=== PATIENT | female | born 1990 | race Caucasian/White ===

== ENCOUNTER 2020-11-01 13:47 | Outpatient (CLI) | payer OTHER, SELFPAY ==
--- NOTE | ~2020-11-01 | XR_ITS ---
XR thoracic spine 3V DATE: 11/01/2020 14:14 INDICATION: Right back pain TECHNIQUE: AP, lateral, swimmer views COMPARISON: 01/24/2011 lumbar spine FINDINGS: There is chronic mild anterior wedging of T11, also present on 01/24/2011. There is minimal degenerative spurring of the thoracic spine. No fracture or dislocation or bone dest ruction. The thoracic pedicles are intact. No paraspinal soft tissue thickening. IMPRESSION: Chronic mild anterior wedging of T11 and minimal degenerative spurring of the thoracic sp ine Reviewed, dictated and finalized at location B. IMPRESSION: Chronic mild anterior wedging of T11 and minimal degenerative spurr ing of the thoracic spine
== END 2020-11-01 13:48 | disposition home or self-care (01) ==
LOC: CHSIMG 13:52
PROVIDERS: PCP Family Medicine; Visit Provider Nurse Practitioner Psychiatric/Mental Health
DX: M54.6 Pain in thoracic spine (principal)
CPT/HCPCS: 72072

== ENCOUNTER 2020-11-30 08:21 | Outpatient (CLI) | payer OTHER, SELFPAY ==
[2020-11-30 08:51] LABS: Estimated Glomerular Filt Rate > 60
== END 2020-11-30 08:22 | disposition home or self-care (01) ==
LOC: CHSIMG 08:25
PROVIDERS: PCP Family Medicine; Visit Provider Nurse Practitioner Psychiatric/Mental Health
DX: R79.89 Other specified abnormal findings of blood chemistry (principal)
CPT/HCPCS: 99199

== ENCOUNTER 2020-12-31 06:00 | Emergency (ER) | payer OTHER, SELFPAY ==
[2020-12-31 06:05] VITALS: PULSE 80; RESP 18; TEMP 36.3; O2SAT 95
[2020-12-31] MEDS: methylPREDNISolone SOD SUCC 125 MG VIAL (06:37)
--- NOTE | 2020-12-31 06:47 | ED.SKABFB ---
HPI - Skin/Abscess/Foreign Bdy General Chief complaint: Skin/Abscess/Foreign Body Stated complaint: hives Time Seen by Provider: 12/31/20 06:07 Source: patient Mode of arrival: ambulatory Limitations: no limitations History of Present Illness complaint: rash (localized right lower abdomen to right upper buttock resolved urticariae) Onset (ago): day(s) (1) Location: buttocks Severity: mild Quality: pruritic Pain Consistency: other (pain-free.) Relieving factors: medication Exacerbating factors: none Associated symptoms: denies other symptoms Treatments prior to arrival: Benadryl Related Data Home Medications Medication Instructions Recorded Confirmed buspirone See Rx Instructions .ROUTE .COMPLEX 12/31/20 12/31/20 cyclobenzaprine See Rx Instructions .ROUTE .COMPLEX 12/31/20 12/31/20 metformin 500 mg PO DAILY 12/31/20 12/31/20 Allergies Allergy/AdvReac Type Severity Reaction Status Date / Time No Known Allergies Allergy Verified 12/31/20 06:03 Review of Systems Review of Systems: All systems reviewed & are unremarkable except as noted in HPI and below Allergic/Immunologic: Allergic/Immunologic: Reports as per HPI [facility] Past Medical History Medical History (Updated 01/01/21 @ 10:53 by Pauly Real MD) Medical history non-contributory Social History Social History Smoking status: Never smoker Exam Const: General: no acute distress Orientation/consciousness: patient oriented x3 HENMT: Head: normal to inspection Ears: external ears normal and TM's normal bilaterally General nose exam: Normal external nose present and Normal nares present Mouth: Yes lip normal and Yes moist mucous membranes Teeth and gingiva: dentition normal Eyes: Pupils: Equal, round and reactive pupils present EOM: EOMs intact bilaterally Neck: Neck: normal visual inspection Chest: Chest palpation & inspection: normal inspection of the chest Resp: Effort & Inspection: normal respiratory effort Auscultation: clear to auscultation bilaterally Cardio: Rate: regular rate Rhythm: regular rhythm GI: GI Palp: Yes Soft to palpation Percussion: Yes normal to percussion Auscultation: normal bowel sounds : General: Yes no CVA tenderness Back/Spine/Pelvis: Back: no CVA tenderness Skin: General skin exam: normal color Other: minimal right lower abdomen to upper buttock erythematous rash. Neuro: General: patient oriented x3, moves all extremities and no meningeal signs Extrem: General: normal to inspection and no pedal edema Psych: Appearance: grossly normal and well kempt Mental Status: mental status grossly normal Affect: normal affect Thought content: Yes Normal thought content present Course Course Emergency Course: stable pt with no acute allergic sxs. Reevaluation(s) Reevaluation #1: Comfortable pt with no acute allergic sxs. Date: 12/31/20 Time: 06:57 Vital Signs Vital signs: Vital Signs Temperature 36.3 C L 12/31/20 06:05 Pulse Rate 80 12/31/20 06:05 Respiratory Rate 18 12/31/20 06:05 Pulse Oximetry 95 12/31/20 06:05 Temperature 36.6 C 12/31/20 06:51 Pulse Rate 70 12/31/20 06:51 Respiratory Rate 20 12/31/20 06:51 Pulse Oximetry 98 12/31/20 06:51 Critical Care Time Critical Care Time Critical Care Time: No Total Critical Care Time: 0 Discharge Plan Discharge Clinical Impression: Urticaria Patient Disposition: Home, Self-Care Condition: Stable Instructions: Antibiotic Form, Urticaria (ED) Additional Instructions: Home. May RTC prn. PMD in 1-2 days. Rx below. Prescriptions: New methylprednisolone [Medrol (Shamar)] 4 mg tablets,dose pack See Rx Instructions .ROUTE .COMPLEX Qty: 21 RF: 0 diphenhydramine HCl [Benadryl] 25 mg capsule 50 mg PO TID PRN (Reason: allergic reaction) Qty: 20 RF: 0 No Action buspirone 7.5 mg tablet See Rx Instructions .ROUTE .COMPLEX RF:
[2020-12-31 06:51] VITALS: PULSE 70; RESP 20; TEMP 36.6; O2SAT 98
== END 2020-12-31 06:55 | disposition home or self-care (01) ==
PROVIDERS: Emergency Provider Emergency Medicine; PCP Family Medicine
DX: L50.9 Urticaria, unspecified (principal)
CPT/HCPCS: 96372; 99283; J2930

== ENCOUNTER 2021-02-06 13:29 | Outpatient (CLI) | payer OTHER, SELFPAY ==
--- NOTE | ~2021-02-06 | XR_ITS ---
EXAMINATION:XR_CERV2-3V_CR DATE: 02/06/2021 14:28 INDICATION: Neck pain TECHNIQUE: AP, lateral, and odontoid views of the cervical spine are provided. COMPARISON: None FINDINGS: Alignment is normal. The odontoid is intact. No fracture is identified. Vertebral body heig hts and disk spaces are normal. Prevertebral soft tissues are normal. IMPRESSION: 1. No acute osseous abnormality. Reviewed, dictated and finalized at location A.
--- NOTE | ~2021-02-06 | XR_ITS ---
XR shoulder RT min 2V 02/06/2021 14:28 INDICATION: Right shoulder pain PROCEDURE: 4 views right shoulder COMPARISON: No prior studies for comparison. FINDINGS: Fracture, dislocation or subluxation is not identified. The soft tissues appear within norm al limits. No foreign bodies are identified. IMPRESSION: 1: NO ACUTE BONE OR JOINT ABNORMALITY IDENTIFIED. Reviewed, dictated and finalized at location B.
== END 2021-02-06 13:30 | disposition home or self-care (01) ==
LOC: CHSIMG 13:31
PROVIDERS: PCP Family Medicine; Visit Provider Nurse Practitioner Psychiatric/Mental Health
DX: S16.1XXA Strain of muscle, fascia and tendon at neck level, initial encounter (principal)
CPT/HCPCS: 72040; 73030

== ENCOUNTER 2021-03-03 13:48 | Emergency (ER) | payer OTHER, SELFPAY ==
--- NOTE | ~2021-03-03 | CT_ITS ---
EXAMINATION: CTA chest PE protocol DATE: 03/03/2021 16:24 INDICATION: Chest pain TECHNIQUE: Computed tomography angiography (CTA) of the chest was performed with 100 mL Omnipaque-350 intravenous contrast timed to evaluate the pulmonary arteries. Coronal maximum intensity projection 3D-reconstructions were created by the technologist. The dose-length product (DLP) was 1045.22 mGy-cm . Automated exposure control and iterative reconstruction technique were employed. COMPARISON: None. FINDINGS: The pulmonary arteries are well-opacified. No pulmonary embolism is identified. The lungs a re free of acute opacities. There is no pleural effusion or pneumothorax. No pathologically enlarged thoracic lymph nodes are identified. The heart size is normal. IMPRESSION: 1. No pulmonary embolism or acute cardiopulmonary abnormality. Reviewed, dictated and finalized at location B. [employer]
--- NOTE | ~2021-03-03 | XR_ITS ---
EXAMINATION: XR chest 2V 03/03/2021 14:15 INDICATION: Chest pain PROCEDURE: 2 view chest COMPARISON: No prior studies for comparison. FINDINGS: The lungs are clear. The cardiomediastinal silhouette is within normal limits. There are no pleural effusions. There is no pneumothorax suspected. IMPRESSION: 1: NO ACUTE CARDIOPULMONARY DISEASE. Reviewed, dictated and finalized at location A. TECHNICIAN
[2021-03-03 13:50] VITALS: BP 154/104; PULSE 109; RESP 20; TEMP 35.8; O2SAT 97
--- NOTE | 2021-03-03 13:54 | ECG_ITS ---
Measurements Intervals [place] Rate: 106 P: 64 IL: 124 QRS: 75 QRSD: 90 T: 120 QT: 359 QTc: 478 Interpretive Statements SINUS TACHYCARDIA EARLY PRECORDIAL R/S TRANSITION, CONSIDER RIGHT VENTRICULAR HYPERTROPHY NONSPECIFIC T-WAVE ABNORMALITY- ANT/HIGH LAT LEADS BASELINE ARTIFACT- I, II, III, AVR, AVL, AVF, V3 BORDERLINE ECG Electronically Signed On 03-03-2021 15:37:24 TOY STUFFER by Omar Bello D.O.
--- NOTE | 2021-03-03 14:23 | ED.CHESTPAIN ---
HPI - Chest Pain General Chief Complaint: Chest Pain Stated Complaint: chest pain Time Seen by Provider: 03/03/21 14:23 Source: patient Mode of arrival: ambulatory Limitations: no limitations History of Present Illness HPI narrative: 30-year-old woman comes in today complaining of chest pain that started in her left shoulder and is gradually involved her left anterior chest, central chest and now her right anterior chest. She states her symptoms started after she received her initial COVID vaccine approximately 10 days ago. Patient states that her pain is constant. Pain is not worsened by taking a deep breath or palpation however she states that when she turns her trunk, pain gets worse. She denies shortness of breath, lightheadedness, dizziness, nausea, vomiting, calf or leg pain, calf or leg swelling, recent surgery, hormone therapy, smoking, or family history of thromboembolism. She has a history of upper back pain for which she takes cyclobenzaprine. MD complaint: chest pain Onset (ago): day(s) (10) Timing of current episode: constant, increasing and still present Prior episodes: No Pain location: left chest and right chest Pain radiation: none Severity: moderate Quality: aching and sharp Relieving factors: nothing Exacerbating factors: movement Risk Factors Coronary artery disease risk factors: diabetes Thoracic aortic dissection risk factors: none Pulmonary embolism risk factors: morbid obesity Related Data Home Medications Medication Instructions Recorded Confirmed buspirone See Rx Instructions .ROUTE .COMPLEX 12/31/20 12/31/20 cyclobenzaprine See Rx Instructions .ROUTE .COMPLEX 12/31/20 12/31/20 metformin 500 mg PO DAILY 12/31/20 12/31/20 Allergies Allergy/AdvReac Type Severity Reaction Status Date / Time lactase [From Dairy Aid] AdvReac Rash Verified 03/03/21 15:34 Review of Systems Review of Systems: All systems reviewed & are unremarkable except as noted in HPI and below Constitutional: Constitutional: Denies chills and Denies fever(s) Eyes: Eyes: Denies change in vision and Denies photophobia ENT: Denies nasal congestion and Denies sore throat Cardiovascular: Cardiovascular: Reports as per HPI, Reports chest pain, Denies rapid heart rate and Denies radiating jaw, neck or arm pain Respiratory: Respiratory: Denies chest congestion, Denies cough, Denies dyspnea and Denies wheezing Gastrointestinal: Gastrointestinal: Denies abdominal pain, Denies nausea and Denies vomiting Musculoskeletal: Musculoskeletal: Reports back pain, Denies arthralgias and Denies joint swelling Integumentary/Breasts: Skin/Breast: Denies breast mass, Denies pruritus, Denies erythema and Denies rash Neurologic: Denies vertigo, Denies dizziness, Denies syncope, Denies focal weakness and Denies weakness Hematologic/Lymphatic: Hematologic/Lymphatic: Denies easy bleeding and Denies easy bruising Allergic/Immunologic: Allergic/Immunologic: Denies lip swelling and Denies throat swelling [facility] Past Medical History Medical History (Updated 03/03/21 @ 14:43 by Diaz Kuo MD) Anxiety Medical history non-contributory Type 2 diabetes mellitus Social History Social History (Updated 03/03/21 @ 14:40 by Diaz Kuo MD) Smoking status: Never smoker Alcohol intake: never Substance use: never Living arrangements: with family Exam Const: General: no acute distress and alert Nutritional Appearance: obese Orientation/consciousness: patient oriented x3 Limitations: no limitations HENMT: Ears: external ears normal, TM's normal bilaterally and EAC's normal General nose exam: Normal nares present Face and sinus: normal facial exam Mouth: Yes moist mucous membranes Throat: posterior oropharynx normal Eyes: Conjunctivae: conjunctivae normal Pupils: Equal, round and reactive pupils present EOM: EOMs intact bilaterally Resp: Effort & Inspection: normal respiratory effort and not labored Auscultation: allan
[2021-03-03 14:51] LABS: Basophils Absolute Auto 0.02 K/mm3 (0.00-0.10); Basophils Percent Auto 0.2 % (0.0-1.0); Eosinophils Absolute Auto 0.06 K/mm3 (0.02-0.50); Eosinophils Percent Auto 0.7 % (1.0-6.0); Hematocrit 41.6 % (35.0-49.0); Hemoglobin 12.9 g/dL (12.0-15.0); Immature Granulocyte Absolute 0.02 K/mm3 (0.00-0.00); Immature Granulocyte Percent A 0.2 % (0.0-0.0); Lymphocytes Absolute Auto 1.35 K/mm3 (1.10-4.50); Lymphocytes Percent Auto 16.3 % (18.0-42.0); Mean Corpuscular Hemoglobin 28.7 pg (27.0-31.0); Mean Corpuscular Volume 92.4 fL (78.0-102.0); Mean Platelet Volume 9.9 fl (9.2-11.8); Monocytes Absolute Auto 0.25 K/mm3 (0.10-0.90); Neutrophils Absolute Auto 6.6 K/mm3 (1.7-7.2); Neutrophils Percent Auto 79.6 % (50.0-70.0); Platelet Count Result 222 K/mm3 (150-420); Red Cell Distribution Width 14.1 % (11.6-14.4); White Blood Count 8.3 K/mm3 (4.8-10.8)
[2021-03-03 15:08] LABS: Alanine Aminotransferase 31 U/L (14-59); Albumin Level 3.7 g/dL (3.4-5.0); Alkaline Phosphatase 95 U/L (46-116); Anion Gap 11 mmol/L (8-16); Aspartate Amino Transferase 31 U/L (15-37); Bilirubin,Total 0.2 mg/dL (0.00-1.00); Blood Urea Nitrogen 8 mg/dL (7-18); Calcium 9.1 mg/dL (8.5-10.1); Carbon Dioxide 29 mmol/L (21-32); Chloride 101 mmol/L (98-108); D Dimer 0.96 mg/L (0.19-0.50); Estimated Glomerular Filt Rate > 60; Glucose 156 mg/dL (70-99); Osmolality Calculated 293 mOsm/kg (285-295); Potassium 3.6 mmol/L (3.5-5.1); Sodium 141 mmol/L (136-145); Total Protein 7.8 g/dL (6.4-8.2)
[2021-03-03 15:58] VITALS: BP 132/84; PULSE 99; RESP 18; O2SAT 99
[2021-03-03 17:15] VITALS: BP 112/76; PULSE 98; RESP 18; TEMP 36.7; O2SAT 97
== END 2021-03-03 17:17 | disposition home or self-care (01) ==
PROVIDERS: Emergency Provider Emergency Medicine; PCP Nurse Practitioner Psychiatric/Mental Health
DX: R07.9 Chest pain, unspecified (principal)
CPT/HCPCS: 36415; 71046; 71275; 80053; 85025; 85380; 93005; 99283; 99284; Q9967

== ENCOUNTER 2021-05-29 13:27 | Outpatient (CLI) | payer OTHER, SELFPAY ==
--- NOTE | ~2021-05-29 | US_ITS ---
EXAMINATION: US pelvic complete DATE: 05/29/2021 13:44 INDICATION: Severe menstrual cramps. TECHNIQUE: Multiple transabdominal and transvaginal sonographic images of the pelvis were obtained. COMPARISON: None. FINDINGS: TRANSABDOMINAL ULTRASOUND: The uterus measures 7.4 x 3.3 x 3.5 cm. There is no free fluid in the pelvis. TRANSVAGINAL ULTRASOUND: The endometrial complex measures 6 mm in thickness. The right ovary measures 1.9 x 1.5 x 2.4 cm. The left ovary measures 3.8 x 2.3 x 2.3 cm. There is normal vascular flow in the ovaries. IMPRESSION: 1. Normal pelvis. Reviewed, dictated and finalized at location E. [employer] IMPRESSION: 1. Normal pelvis.
== END 2021-05-29 13:28 | disposition home or self-care (01) ==
LOC: CHSIMG 13:28
PROVIDERS: PCP Family Medicine; Visit Provider Family Medicine
DX: N94.6 Dysmenorrhea, unspecified (principal)
CPT/HCPCS: 76856

== ENCOUNTER 2021-08-15 18:19 | Emergency (ER) | payer OTHER, SELFPAY ==
--- NOTE | 2021-08-15 18:27 | ED.HA ---
HPI - Headache General Chief Complaint: Headache Stated Complaint: headaches Source: patient and RN notes reviewed Mode of arrival: ambulatory Limitations: no limitations History of Present Illness HPI Narrative: Patient states she has been having headaches for a couple of weeks. She has seen her primary care physician with supposed to get an MRI of the brain. She has claustrophobia and was supposed to take a Valium prior to the procedure but she says that she just could not do the procedure so she did not take the medicine and she did not get the MRI. MD elicited complaint: headache Onset (ago): week(s) (2) Onset description: gradually Location: generalized Severity: moderate Quality & Timing: throbbing Exacerbating factors: none Relieving factors: nothing Context: occurred at rest Associated symptoms: nausea and vomiting Treatments prior to arrival: acetaminophen and ibuprofen Related Data Home Medications Medication Instructions Recorded Confirmed buspirone 7.5 mg PO DAILY 12/31/20 03/03/21 Allergies Allergy/AdvReac Type Severity Reaction Status Date / Time lactase [From Dairy Aid] AdvReac Rash Verified 08/15/21 18:49 Review of Systems Review of Systems: All systems reviewed & are unremarkable except as noted in HPI and below Constitutional: Constitutional: Denies chills, Denies fever(s) and Denies weakness Gastrointestinal: Gastrointestinal: Reports nausea and Denies vomiting Neurologic: Denies confusion, Denies vertigo, Reports dizziness, Denies syncope, Denies focal weakness, Denies numbness and Denies weakness PMFSH Past Medical History Medical History (Updated 08/15/21 @ 19:22 by Danielito Hoff MD) Anxiety Hyperlipidemia Morbid obesity Type 2 diabetes mellitus Social History Social History Smoking status: Never smoker Alcohol intake: never Substance use: never Exam Const: General: healthy appearing, no acute distress and alert Nutritional Appearance: well nourished and obese morbidly obese Orientation/consciousness: patient oriented x3 HENMT: Head: normal to inspection Ears: external ears normal Eyes: Conjunctivae: conjunctivae normal Pupils: Equal, round and reactive pupils present EOM: EOMs intact bilaterally Neck: Neck: normal visual inspection Resp: Effort & Inspection: normal respiratory effort Auscultation: clear to auscultation bilaterally Cardio: Rate: regular rate Rhythm: regular rhythm GI: GI Palp: Yes Soft to palpation and No Tenderness to palpation present (GI) Auscultation: normal bowel sounds Back/Spine/Pelvis: Cervical Spine: cervical ROM normal Thoracic/Lumbar Spine: thoraco-lumbar ROM normal Skin: General skin exam: normal color Rashes: no rashes Neuro: General: patient oriented x3, moves all extremities, no meningeal signs, no focal motor deficits and CN's II-XI intact bilaterally Speech: normal speech Gait exam (Neuro): Normal gait present Extrem: General: normal to inspection and no clubbing, cyanosis or edema Psych: Appearance: grossly normal and well kempt Mental Status: mental status grossly normal Affect: normal affect Attitude: cooperative Thought content: Yes Normal thought content present Course Course Emergency Course: I explained to the patient that we did not have MRI available, that appointments need to be made for that. She understands and she only wishes if I can give her something for her headache. Vital Signs Vital signs: Vital Signs Temperature 36.7 C 08/15/21 18:40 Pulse Rate 102 H 08/15/21 18:40 Respiratory Rate 20 08/15/21 18:40 Blood Pressure 137/98 H 08/15/21 18:40 Pulse Oximetry 97 08/15/21 18:40 Temperature 36.7 C 08/15/21 18:40 Pulse Rate 81 08/15/21 19:40 Respiratory Rate 16 08/15/21 19:40 Blood Pressure 134/94 H 08/15/21 19:40 Pulse Oximetry 99 08/15/21 19:40 Discharge Plan Discharge Clinical Impression: Ramesh
[2021-08-15 18:40] VITALS: BP 137/98; PULSE 102; RESP 20; TEMP 36.7; O2SAT 97
[2021-08-15] MEDS: diphenhydrAMINE HCl INJ 50 MG/ML VIAL IV PUSH (18:58)
[2021-08-15] MEDS: KETOROLAC 30 MG/ML VIAL (*BKC) IV PUSH (18:58)
[2021-08-15] MEDS: ONDANSETRON INJ 4 MG/2 ML VIAL IV PUSH (18:58)
[2021-08-15 19:40] VITALS: BP 134/94; PULSE 81; RESP 16; O2SAT 99
== END 2021-08-15 19:41 | disposition home or self-care (01) ==
PROVIDERS: Emergency Provider Emergency Medicine; PCP Family Medicine
DX: G44.209 Tension-type headache, unspecified, not intractable (principal)
CPT/HCPCS: 96374; 96375; 99284; J1200; J1885; J2405

== ENCOUNTER 2021-08-22 07:49 | Outpatient (CLI) | payer OTHER, SELFPAY ==
--- NOTE | ~2021-08-22 | MR_ITS ---
EXAMINATION: MR brain/brain stem wo con DATE: 08/22/2021 08:44 INDICATION: Headache. TECHNIQUE: Magnetic resonance imaging (MRI) of the brain and brainstem was performed without intraven ous contrast. COMPARISON: None. FINDINGS: There is no intracranial hemorrhage, acute infarction, or abnormal intracranial mass lesion . The ventricles are normal in size. The orbits are normal. There is mild mucosal thickening in the e thmoid sinuses. Right maxillary sinus is small. The mastoid air cells are normal. IMPRESSION: 1. Normal brain. Reviewed, dictated and finalized at location B. IMPRESSION: 1. Normal brain.
== END 2021-08-22 07:50 | disposition home or self-care (01) ==
LOC: CHSIMG 07:51
PROVIDERS: PCP Family Medicine; Visit Provider Family Medicine
DX: R51.9 Headache, unspecified (principal)
CPT/HCPCS: 70551

== ENCOUNTER 2021-09-20 19:26 | Emergency (ER) | payer OTHER, SELFPAY ==
[2021-09-20] VITALS (16 sets, daily range): BP systolic 149–164; BP diastolic 94–97; PULSE 95–117; RESP 22; TEMP 36.7; O2SAT 95–100
--- NOTE | ~2021-09-20 | XR_ITS ---
EXAMINATION: XR chest 1V portable INDICATION: Central chest pain TECHNIQUE: Portable AP chest at 2107 hours COMPARISON: 03/03/2021 FINDINGS: The lungs are free of acute opacities. There is no pleural effusion or pneumothorax. The ca rdiomediastinal silhouette is normal. IMPRESSION: 1. No acute cardiopulmonary abnormality. Reviewed, dictated and finalized at location F.
--- NOTE | 2021-09-20 20:36 | ECG_ITS ---
Measurements Intervals [place] Rate: 100 P: 14 IL: 131 QRS: -11 QRSD: 88 T: -3 QT: 314 QTc: 405 Interpretive Statements SINUS TACHYCARDIA POSSIBLE ANTERIOR MYOCARDIAL INFARCTION , AGE INDETERMINATE Electronically Signed On 09-20-2021 21:47:05 CDT by Nikunj Lacy M.D.
[2021-09-20 20:57] LABS: Basophils Absolute Auto 0.04 K/mm3 (0.00-0.10); Basophils Percent Auto 0.4 % (0.0-1.0); Eosinophils Absolute Auto 0.14 K/mm3 (0.02-0.50); Eosinophils Percent Auto 1.2 % (1.0-6.0); Hematocrit 41.2 % (35.0-49.0); Hemoglobin 12.9 g/dL (12.0-15.0); Immature Granulocyte Absolute 0.04 K/mm3 (0.00-0.00); Immature Granulocyte Percent A 0.4 % (0.0-0.0); Lymphocytes Absolute Auto 1.97 K/mm3 (1.10-4.50); Lymphocytes Percent Auto 17.5 % (18.0-42.0); Mean Corpuscular HGB Conc 31.3 g/dL (32.0-36.0); Mean Corpuscular Hemoglobin 28.9 pg (27.0-31.0); Mean Corpuscular Volume 92.2 fL (78.0-102.0); Mean Platelet Volume 10.3 fl (9.2-11.8); Monocytes Absolute Auto 0.39 K/mm3 (0.10-0.90); Monocytes Percent Auto 3.5 % (2.0-11.0); Neutrophils Absolute Auto 8.7 K/mm3 (1.7-7.2); Platelet Count Result 232 K/mm3 (150-420); Red Blood Count 4.47 M/mm3 (4.20-5.40); Red Cell Distribution Width 14.1 % (11.6-14.4); White Blood Count 11.3 K/mm3 (4.8-10.8)
[2021-09-20] MEDS: SODIUM CHLORIDE 0.9% IV 1,000 ML 999 ML IV CONT (21:02)
[2021-09-20] MEDS: PANTOPRAZOLE SODIUM IV 40 MG VIAL IV PUSH (21:02)
[2021-09-20] MEDS: KETOROLAC (*BKC) 60 MG/2 ML VIAL IM (21:02)
[2021-09-20] MEDS: ONDANSETRON INJ 4 MG/2 ML VIAL IV PUSH (21:02)
[2021-09-20 21:15] LABS: Alanine Aminotransferase 26 U/L (14-59); Albumin Level 3.9 g/dL (3.4-5.0); Alkaline Phosphatase 88 U/L (46-116); Anion Gap 7 mmol/L (8-16); Aspartate Amino Transferase 21 U/L (15-37); Bilirubin,Total 0.3 mg/dL (0.00-1.00); Blood Urea Nitrogen 9 mg/dL (7-18); Carbon Dioxide 27 mmol/L (21-32); Chloride 102 mmol/L (98-108); Estimated Glomerular Filt Rate > 60; Glucose 128 mg/dL (70-99); Osmolality Calculated 282 mOsm/kg (285-295); Potassium 3.9 mmol/L (3.5-5.1); Sodium 136 mmol/L (136-145); Total Protein 8.4 g/dL (6.4-8.2)
[2021-09-20 21:17] LABS: Lactic Acid Reflex 1.1 mmol/L (0.4-2.0)
[2021-09-20 21:24] LABS: SPREG INTERNAL CONTROL Positive; Serum Qual hCG Negative
[2021-09-20 21:57] LABS: Add Urine Microscopic? YES; Appearance Urine Clear (Clear); Bilirubin Urine Negative (Negative); Blood Urine Negative (Negative); Color Urine Light Yellow (Yellow); Glucose Urine UA Negative (Negative); Ketones Urine Negative (Negative); Leukocyte Esterase Ur Trace (Negative); Nitrate Urine Negative (Negative); Protein Urine Trace (Negative); Specific Grav Ur >= 1.030 (1.010-1.020); Urobilinogen Urine 0.2 mg/dL (0.2-1.0); pH Urine 5.5 (5.0-8.0)
[2021-09-20 22:03] LABS: RBC Urine 0-2 /hpf (0-2); WBC Urine 0-3 /hpf (0-3)
[2021-09-20 22:04] LABS: Bacteria Urine Trace /hpf; Squamous Epithelial Cell Urine Few /hpf (Few)
--- NOTE | 2021-09-20 23:00 | ED.GENADULT ---
HPI - General Adult General Chief complaint: Unspecified Stated complaint: tightness in Head, dazed,chest pain Time Seen by Provider: 09/20/21 19:30 Source: patient and RN notes reviewed Mode of arrival: ambulatory Limitations: no limitations History of Present Illness Onset (ago): day(s) (3) Location: chest Radiation: non-radiation Severity: moderate Severity scale (1-10): 7 Quality: aching and dull Pain Consistency: constant Relieving factors: none Exacerbating factors: none Associated symptoms: chest pain and nausea/vomiting Treatments prior to arrival: none Related Data Home Medications Medication Instructions Recorded Confirmed buspirone 7.5 mg tablet 7.5 mg PO BID 12/31/20 09/20/21 amitriptyline 25 mg tablet 25 tablet PO DAILY 09/20/21 09/20/21 atorvastatin 40 mg tablet 40 tablet PO DAILY 09/20/21 09/20/21 dulaglutide 0.75 mg/0.5 mL 0.75 ea subcut DAILY 09/20/21 09/20/21 subcutaneous pen injector (Trulicity) Allergies Allergy/AdvReac Type Severity Reaction Status Date / Time lactase [From Dairy Aid] AdvReac Rash Verified 08/15/21 18:49 Review of Systems Review of Systems: All systems reviewed & are unremarkable except as noted in HPI and below Constitutional: Constitutional: Reports no additional constitutional complaints Eyes: Eyes: Reports no additional eye complaints ENT: Reports system reviewed and no additional complaints, except as documented Cardiovascular: Cardiovascular: Reports no additional cardiovascular complaints Respiratory: Respiratory: Reports no additional respiratory complaints Gastrointestinal: Gastrointestinal: Reports no additional gastrointestinal complaints Genitourinary: Genitourinary: Reports no additional female genitourinary complaints Musculoskeletal: Musculoskeletal: Reports no additional musculoskeletal complaints Integumentary/Breasts: Skin/Breast: Reports system reviewed and no additional complaints, except as docu Neurologic: Reports system reviewed and no additional complaints, except as documented Psychiatric: Psychiatric: Reports no additional psychiatric complaints Endocrine: Endocrine: Reports no additional endocrine complaints Hematologic/Lymphatic: Hematologic/Lymphatic: Reports no additional hematologic/lymphatic complaints Allergic/Immunologic: Allergic/Immunologic: Reports no additional allergic/immunologic complaints PMFSH Past Medical History Medical History Anxiety Hyperlipidemia Migraine headache Morbid obesity Type 2 diabetes mellitus Social History Social History Smoking status: Never smoker Alcohol intake: never Substance use: never Exam Const: General: healthy appearing and no acute distress Nutritional Appearance: well nourished Orientation/consciousness: patient oriented x3 Limitations: no limitations HENMT: Head: normal to inspection Ears: external ears normal, TM's normal bilaterally and EAC's normal General nose exam: Normal external nose present and Normal nares present Face and sinus: normal facial exam and sinuses nontender Mouth: Yes Normal oral and palatal mucosa present and Yes moist mucous membranes Teeth and gingiva: dentition normal Throat: posterior oropharynx normal Eyes: Conjunctivae: conjunctivae normal Pupils: Equal, round and reactive pupils present EOM: EOMs intact bilaterally Neck: Neck: normal visual inspection, no lymphadenopathy and no meningeal signs Chest: Chest palpation & inspection: normal inspection of the chest Resp: Effort & Inspection: normal respiratory effort Auscultation: clear to auscultation bilaterally Cardio: Rate: regular rate Rhythm: regular rhythm GI: GI Palp: Yes Soft to palpation and No Tenderness to palpation present (GI) Auscultation: normal bowel sounds : General: Yes bladder normal to palpation and Yes no CVA tenderness Bimanual exam- va
== END 2021-09-20 23:21 | disposition home or self-care (01) ==
PROVIDERS: Emergency Provider Emergency Medicine; PCP Family Medicine
DX: G43.909 Migraine, unspecified, not intractable, without status migrainosus (principal); R07.9 Chest pain, unspecified
CPT/HCPCS: 36415; 71045; 80053; 81001; 83605; 84484; 84703; 85025; 93005; 96361; 96372; 96374; 96375; 99284; C9113; J1885; J2405; J7030

== ENCOUNTER 2022-02-06 08:52 | Outpatient (CLI) | payer OTHER, SELFPAY ==
--- NOTE | ~2022-02-06 | MMUS_ITS ---
EXAMINATION: MM diagnostic mary BI w estela, US breast LT limited HISTORY: Palpable abnormality medial aspect of the left breast/sternum TECHNIQUE: Additional 3-D tomosynthesis images of the breasts were performed and synthetic 2-D images were generated. CAD analysis was submitted and interpreted. High resolution Limited left breast ultr asound was performed. COMPARISON: 02/06/2022 BREAST PARENCHYMAL COMPOSITION: FINDINGS: MAMMOGRAPHIC FINDINGS: There are no suspicious masses, calcifications or architectural distortion in either breast to sugges t malignancy. ULTRASOUND: Limited left breast ultrasound: Normal heterogeneous echotexture. No focal mass identified in the are a of palpable concern. IMPRESSION: 1. No evidence for malignancy in either breast. 2. Routine yearly screening mammogram and regular clinical breast examination are recommended. BI-RADS Category 1: Negative Reviewed, dictated and finalized at location A. IMPRESSION: 1. No evidence for malignancy in either breast. 2. Routine yearly screening mammogram and regular clinical breast examination a re recommended. BI-RADS Category 1: Negative
== END 2022-02-06 08:53 | disposition home or self-care (01) ==
LOC: CHSIMG 08:54
PROVIDERS: PCP Family Medicine; Visit Provider Registered Nurse
DX: N63.22 Unspecified lump in the left breast, upper inner quadrant (principal)
CPT/HCPCS: 76642; 77062; 77066; G0279

== ENCOUNTER 2022-03-01 07:46 | Outpatient (CLI) | payer OTHER, SELFPAY ==
--- NOTE | ~2022-03-01 | US_ITS ---
EXAMINATION: US abdomen limited DATE: 03/01/2022 09:05 INDICATION: Right upper quadrant pain TECHNIQUE: Multiple grayscale and Doppler ultrasound images of the abdomen were obtained. COMPARISON: None available FINDINGS: The head and body of the pancreas are normal. The pancreatic tail is obscured by bowel gas. The liver demonstrates increased echogenicity, heterogenous echotexture, and decreased through trans mission. No surface nodularity. Normal hepatopetal flow in the main portal vein. The gallbladder is n ormal with no abnormal wall thickening, pericholecystic fluid or stones. The normal common bile duct measures 3 mm. There was no sonographic Benoit sign. IMPRESSION: 1. Diffuse hepatic steatosis. Reviewed, dictated and finalized at location B. ER AND [employer] HAND[employer] HELPER
== END 2022-03-01 07:47 | disposition home or self-care (01) ==
LOC: CHSIMG 07:47
PROVIDERS: PCP Family Medicine; Visit Provider Registered Nurse
DX: R10.9 Unspecified abdominal pain (principal)
CPT/HCPCS: 76705

== ENCOUNTER 2022-11-20 16:23 | Outpatient (CLI) | payer OTHER, SELFPAY ==
--- NOTE | ~2022-11-20 | XR_ITS ---
EXAM: XR knee RT 3V DATE: 11/20/2022 16:45 HISTORY: right knee pain X 1 WEEK/NO INJURY . COMPARISON: None available. FINDINGS: Normal mineralization. No fracture or dislocation. No lytic or blastic lesion. Possible la teral subluxation of the patella. Mild medial and lateral joint space narrowing. Mild tricompartmenta l osteophytosis. Enthesopathy at the medial aspect of the distal right femur. Fragmentation at the ti bial tuberosity. No erosion or periosteal change. Soft tissues within normal limits. IMPRESSION: Question of lateral patellar subluxation. 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 Likely sequela of [place]-Schlatter disease. Reviewed, dictated and finalized at location K. IMPRESSION: Question of lateral patellar subluxation. Tricompartmental osteoart hritis of the right knee. Likely sequela of [place]Schlatter disease.
== END 2022-11-20 16:24 | disposition home or self-care (01) ==
LOC: CHSIMG 16:25
PROVIDERS: PCP Family Medicine; Visit Provider Family Medicine
DX: M25.561 Pain in right knee (principal); M17.11 Unilateral primary osteoarthritis, right knee
CPT/HCPCS: 73562

== ENCOUNTER 2022-11-23 12:01 | Outpatient (CLI) | payer OTHER, SELFPAY ==
--- NOTE | ~2022-11-23 | US_ITS ---
Thyroid ultrasound. Clinical History: Abnormal thyroid uptake Findings: Real-time sonography of the thyroid gland was performed. The right lobe measures 4.3 x 1.5 x 2.5 cm. The left lobe measures 5.7 x 1.8 x 1.8 cm. The isthmus is 11 mm in AP diameter. Thyroid pa renchyma is somewhat heterogeneous, without discrete nodule. Impression: No discrete nodule evident.. Reviewed, dictated and finalized at location . Impression: No discrete nodule evident..
== END 2022-11-23 12:02 | disposition home or self-care (01) ==
LOC: CHSIMG 12:04
PROVIDERS: PCP Family Medicine; Visit Provider Family Medicine
DX: R94.6 Abnormal results of thyroid function studies (principal)
CPT/HCPCS: 76536

== ENCOUNTER 2023-04-03 08:16 | Outpatient (CLI) | payer OTHER, SELFPAY ==
--- NOTE | ~2023-04-03 | US_ITS ---
Abdominal Sonogram: Real-time sonographic imaging of the abdomen was performed. Clinical History: GERD Findings: The liver appears echogenic, with no evidence of mass lesion or bile duct dilatation. Main portal vein demonstrates normal direction of flow. The spleen is a limits of normal in size, at 13.9 cm. The gallbladder is well distended, and appears normal with no evidence of gallstone or wall thi ckening. The common bile duct measures 4 mm. The visualized pancreas, aorta, and IVC are unremarkabl e. The right kidney measures 12.1 cm in length and the left kidney measures 11.0 cm. There is no hy dronephrosis or renal calculus. Impression: Borderline splenomegaly. Diffuse fatty infiltration of the liver. Reviewed, dictated and finalized at [facility]. MANAGER Impression: Borderline splenomegaly. Diffuse fatty infiltration of the liver.
== END 2023-04-03 08:17 | disposition home or self-care (01) ==
LOC: CHSIMG 08:19
PROVIDERS: PCP Family Medicine; Visit Provider Registered Nurse
DX: K21.9 Gastro-esophageal reflux disease without esophagitis (principal); Z12.31 Encounter for screening mammogram for malignant neoplasm of breast; K76.0 Fatty (change of) liver, not elsewhere classified
CPT/HCPCS: 76700

== ENCOUNTER 2023-07-11 14:14 | Outpatient (CLI) | payer OTHER, SELFPAY ==
[2023-07-11 15:18] LABS: Influenza A QL RT-PCR Negative (Negative); Influenza B QL RT-PCR Negative (Negative)
== END 2023-07-11 14:15 | disposition home or self-care (01) ==
LOC: CHSLAB 14:18
PROVIDERS: PCP Family Medicine; Visit Provider Physician Assistant
DX: J01.90 Acute sinusitis, unspecified (principal)
CPT/HCPCS: 87502

== ENCOUNTER 2023-11-27 01:14 | Emergency (ER) | payer OTHER, SELFPAY ==
[2023-11-27 01:27] VITALS: BP 138/90; PULSE 117; RESP 18; TEMP 36.1; O2SAT 97
--- NOTE | 2023-11-27 01:28 | ED.HA ---
HPI - Headache General Chief Complaint: Headache Stated Complaint: Migraine Time Seen by Provider: 11/27/23 01:28 Source: patient Mode of arrival: ambulatory Limitations: no limitations History of Present Illness HPI Narrative: Patient is a 33-year-old female with migraines and here with a typical migraine for her having headache in the front and on the back of the head. He has associated nausea. She has photophobia and phonophobia. Smells are making her nauseous. MD elicited complaint: headache and migraine Pertinent past history: migraines Onset (ago): day(s) (1) Onset description: gradually Location: frontal and occipital Severity: similar to previous episodes Pain scale (0-10): 9 Quality & Timing: throbbing, sharp, constant, pressure and similar to previous headaches Exacerbating factors: light, noise and other ( Smell) Relieving factors: nothing Context: occurred at rest and occurred with exertion/activity Associated symptoms: photophobia and sensitivity to sound Treatments prior to arrival: migraine medication Related Data Home Medications Medication Instructions Recorded Confirmed amitriptyline 25 mg tablet 25 tablet PO DAILY 09/20/21 11/27/23 atorvastatin 40 mg tablet 40 tablet PO DAILY 09/20/21 11/27/23 rizatriptan 10 mg tablet 10 mg PO ONCE 05/24/22 11/27/23 simvastatin 10 mg tablet 10 mg PO DAILY 05/24/22 11/27/23 spironolactone 50 mg tablet 50 mg PO BID 05/24/22 11/27/23 topiramate 50 mg capsule 50 mg PO DAILY 05/24/22 11/27/23 sprinkle,extended release 24 hr empagliflozin 25 mg tablet 25 mg PO DAILY 11/27/23 11/27/23 (Jardiance) Allergies Allergy/AdvReac Type Severity Reaction Status Date / Time lactase [From Dairy Aid] AdvReac Rash Verified 11/27/23 01:24 Review of Systems Review of Systems: All systems reviewed & are unremarkable except as noted in HPI and below Constitutional: Constitutional: Reports no additional constitutional complaints Eyes: Eyes: Reports no additional eye complaints ENT: Reports system reviewed and no additional complaints, except as documented Cardiovascular: Cardiovascular: Reports no additional cardiovascular complaints Respiratory: Respiratory: Reports no additional respiratory complaints Gastrointestinal: Gastrointestinal: Reports no additional gastrointestinal complaints Genitourinary: Genitourinary: Reports no additional female genitourinary complaints Musculoskeletal: Musculoskeletal: Reports no additional musculoskeletal complaints Integumentary/Breasts: Skin/Breast: Reports system reviewed and no additional complaints, except as docu Neurologic: Reports system reviewed and no additional complaints, except as documented Psychiatric: Psychiatric: Reports no additional psychiatric complaints Endocrine: Endocrine: Reports no additional endocrine complaints Hematologic/Lymphatic: Hematologic/Lymphatic: Reports no additional hematologic/lymphatic complaints Allergic/Immunologic: Allergic/Immunologic: Reports no additional allergic/immunologic complaints PMFSH Past Medical History Medical History Anxiety Hyperlipidemia Migraine headache Morbid obesity Type 2 diabetes mellitus Family History Family History Mother Cancer Father Diabetes mellitus Grandparent Diabetes mellitus Social History Social History Smoking status: Never smoker Alcohol intake: current Substance use: never Lack of Transportation: No Lack of Food: Never True Current Housing: I Have Housing Concerned About Future Housing: No Difficulty Paying Gas/Electric Bills: No Difficulty Paying for Meds: No Currently Unemployed: No Education: High School Diploma/GED Difficulty w/ Childcare or Family Care: No Living arrangements: with family Exam Const: General: healthy appearing N
[2023-11-27 01:51] LABS: Add Urine Microscopic? YES; Appearance Urine Clear (Clear); Bilirubin Urine Negative (Negative); Blood Urine Negative (Negative); Color Urine Light Yellow (Yellow); Glucose Urine UA 3+ (Negative); Ketones Urine Negative (Negative); Leukocyte Esterase Ur Negative LEU/UL (Negative); Nitrate Urine Negative (Negative); Pregnancy On Board Control Positive; Protein Urine Trace (Negative); Specific Grav Ur 1.025 (1.010-1.020); Urine Pregnancy Test Negative; Urobilinogen Urine 0.2 mg/dL (0.2-1.0)
[2023-11-27 01:55] LABS: Bacteria Urine 1+ /hpf; RBC Urine None seen /hpf (0-2); Squamous Epithelial Cell Urine Few /hpf (Few); WBC Urine None seen /hpf (0-3)
[2023-11-27] MEDS: SODIUM CHLORIDE 0.9% IV 1,000 ML 999 ML IV CONT (02:04)
[2023-11-27] MEDS: diphenhydrAMINE HCl INJ 50 MG/ML VIAL 25 MG IV PUSH (02:05)
[2023-11-27] MEDS: KETOROLAC 30 MG/ML VIAL (*BKC) IV PUSH (02:06)
[2023-11-27] MEDS: METOCLOPRAMIDE HCL INJ 10 MG/2 ML VIAL IV PUSH (02:06)
[2023-11-27 03:57] VITALS: BP 136/84; PULSE 100; RESP 18; O2SAT 98
== END 2023-11-27 03:57 | disposition home or self-care (01) ==
LOC: CHSED 03:07
PROVIDERS: Emergency Provider Emergency Medicine; PCP Family Medicine
DX: R51.9 Headache, unspecified (principal); E78.5 Hyperlipidemia, unspecified; E11.9 Type 2 diabetes mellitus without complications; Z79.899 Other long term (current) drug therapy
CPT/HCPCS: 81001; 81025; 96361; 96374; 96375; 99284; J1200; J1885; J2765; J7030